=== PATIENT | male | born 1930 | race Caucasian/White ===

== ENCOUNTER 2019-10-17 09:18 | Inpatient (IN) | payer MEDICARE, OTHER ==
[~2019-10-17] VITALS: Ht 162.6 cm; Wt 54.0 kg
[2019-10-17] MEDS ORDERED: OMEP40CA13 PO (09:36)
[2019-10-17] MEDS ORDERED: ATOR40TA PO (09:36)
[2019-10-17] MEDS ORDERED: DOCU-141 PO (09:36)
[2019-10-17] MEDS ORDERED: LATA2.5D7 EACHEYE (09:36)
[2019-10-17] MEDS ORDERED: ASPI-1169 PO (09:36)
[2019-10-17] MEDS ORDERED: MIRT15TA7 PO (09:36)
[2019-10-17] MEDS ORDERED: CALC-7 PO (09:36)
[2019-10-17] MEDS ORDERED: METO25TA3 PO (09:36)
[2019-10-17] MEDS ORDERED: LORA-259 PO (09:36)
[2019-10-17] MEDS ORDERED: FURO-145 PO (09:36)
[2019-10-17] MEDS ORDERED: BUPR-96 PO (09:36)
[2019-10-17 09:50] LABS: BASOPHILS % (AUTO) 0.5 % (0.0-2.0); EOSINOPHILS % (AUTO) 6.3 % (0.0-6.0); HEMATOCRIT 32 % (39-51); HEMOGLOBIN 10.6 g/dL (13.5-17.5); LYMPHOCYTES # (AUTO) 0.7 /CMM (0.8-4.8); LYMPHOCYTES % (AUTO) 11.9 % (20.0-44.0); MEAN CORPUSCULAR HGB CONC 33 g/dl (31.0-36.0); MEAN CORPUSCULAR VOLUME 87 fL (80-96); MONOCYTES # (AUTO) 0.8 /CMM (0.1-1.30); MONOCYTES % (AUTO) 13.9 % (2.0-12.0); NEUTROPHILS % (AUTO) 67.4 % (43.0-81.0); PLATELET COUNT (AUTO) 122 /CMM (150-450); RED BLOOD CELL COUNT(AUTO) 3.72 MIL/uL (4.5-6.0); WHITE BLOOD COUNT (AUTO) 5.9 K/uL (4.3-11.0)
[2019-10-17 09:58] LABS: CALCIUM, SERUM 9.3 mg/dL (8.5-10.1); CARBON DIOXIDE 29 mmol/L (21-32); CHLORIDE 104 mmol/L (98-107); CREATININE 1.8 mg/dL (0.6-1.3); GLUCOSE 98 mg/dL (74-106); POTASSIUM 3.5 mmol/L (3.5-5.1); SODIUM SERUM 141 mmol/L (136-145); UREA NITROGEN, BLOOD 32 mg/dL (7-18)
[2019-10-17 10:14] LABS: B-TYPE NATRIURETIC PEPTIDE 4913 PG/ML (0-125)
[2019-10-17] MEDS ORDERED: CLOPIDOGREL BISULFATE 75 MG TABLET PO ONE (12:30)
[2019-10-17 12:35] VITALS: BP 144/86
[2019-10-17] MEDS: METOPROLOL SUCCINATE 50 MG TAB.SR.24H PO SCH (13:21)
[2019-10-17] MEDS ORDERED: HYDROCODONE/APAP 5/325MG 1 EACH TABLET PO PRN (15:30)
[2019-10-17] MEDS ORDERED: ZOLPIDEM TARTRATE 5 MG TABLET PO PRN (15:30)
[2019-10-17] MEDS ORDERED: ASPIRIN EC 81 MG TABLET.DR PO SCH (15:30)
[2019-10-17] MEDS ORDERED: Z GUARD REMEDY 2 OZ OINT TP PRN (15:30)
[2019-10-17] MEDS ORDERED: ONDANSETRON HCL/PF 4 MG/2 ML VIAL IVP PRN (15:30)
[2019-10-17] MEDS ORDERED: ACETAMINOPHEN 325 MG TABLET PO PRN (15:30)
[2019-10-17] MEDS ORDERED: HEPARIN INFUSION/D5W 500 ML IV PRN (15:30)
[2019-10-17 16:00] VITALS: BP 114/62
[2019-10-17] MEDS: CALCIUM CARB 600MG /VIT D 1 EACH TABLET PO SCH (16:35)
[2019-10-17 17:10] LABS: APPEARANCE,URINE CLEAR (CLEAR); BILIRUBIN,URINE NEGATIVE (NEGATIVE); BLOOD, URINE NEGATIVE Ery/uL (NEGATIVE); COLOR,URINE YELLOW (YELLOW); KETONES,URINE NEGATIVE (NEGATIVE); LEUKOCYTE ESTERASE ,URINE SMALL (NEGATIVE); NITRITE, URINE NEGATIVE (NEGATIVE); PROTEIN,URINE 30 mg/dl (NEGATIVE); UGLUCOSE NEGATIVE (NEGATIVE); UROBILINOGEN,URINE 0.2 EU/dL (0.2)
[2019-10-17 17:17] LABS: BACTERIA,URINE 2+ /HPF (None Seen); RBC,URINE 0-2 /HPF (0-2); SQUAMOUS EPITHELIAL CELL,UR Few /HPF (None Seen); TRIPLE PHOSPHATE CRYSTAL,UR Few /HPF (None Seen); WBC,URINE 21-50 /HPF (0-3)
[2019-10-17 17:29] LABS: CREATININE, URINE 40.4 MG/DL (30.0-125.0); URINE TOTAL PROTEIN 54.6 mg/dL (0-11.9)
[2019-10-17 17:39] LABS: EOSINOPHIL,URINE Rare
[2019-10-17] MEDS ORDERED: LATANOPROST EYE DROP 0.005% 2.5 ML BOTTLE EACHEYE SCH (18:00)
[2019-10-17] MEDS ORDERED: MIRTAZAPINE 15 MG TABLET PO SCH (18:00)
[2019-10-17 20:00] VITALS: BP 110/65
[2019-10-17] MEDS ORDERED: HEPARIN SODIUM, PORCINE 5000 UNITS/1 ML VIAL IV ONE ×2 (21:00)
[2019-10-17] MEDS ORDERED: ATORVASTATIN 40 MG TABLET PO SCH (22:00)
[2019-10-18] VITALS: BP 131/95
[2019-10-18 03:42] LABS: BASOPHILS % (AUTO) 0.5 % (0.0-2.0); EOSINOPHILS % (AUTO) 8.3 % (0.0-6.0); HEMATOCRIT 32 % (39-51); HEMOGLOBIN 10.6 g/dL (13.5-17.5); LYMPHOCYTES % (AUTO) 15.9 % (20.0-44.0); MEAN CORPUSCULAR HGB CONC 33 g/dl (31.0-36.0); MEAN CORPUSCULAR VOLUME 86 fL (80-96); MONOCYTES # (AUTO) 0.7 /CMM (0.1-1.30); MONOCYTES % (AUTO) 10.8 % (2.0-12.0); NEUTROPHILS # (AUTO) 4.3 /CMM (1.8-8.9); NEUTROPHILS % (AUTO) 64.5 % (43.0-81.0); PLATELET COUNT (AUTO) 126 /CMM (150-450); RED BLOOD CELL COUNT(AUTO) 3.77 MIL/uL (4.5-6.0); WHITE BLOOD COUNT (AUTO) 6.6 K/uL (4.3-11.0)
[2019-10-18 03:56] LABS: ALANINE AMINOTRANSFERASE 26 U/L (12-78); ALBUMIN 3.1 g/dL (3.4-5.0); ALKALINE PHOSPHATASE 125 U/L (46-116); ASPARTATE AMINOTRANSFERASE 27 U/L (15-37); BILIRUBIN,TOTAL 0.9 mg/dL (0.2-1.0); CALCIUM, SERUM 8.8 mg/dL (8.5-10.1); CARBON DIOXIDE 27 mmol/L (21-32); CHLORIDE 103 mmol/L (98-107); CREATININE 1.8 mg/dL (0.6-1.3); GLUCOSE 102 mg/dL (74-106); MAGNESIUM 1.9 mg/dL (1.8-2.4); POTASSIUM 3.3 mmol/L (3.5-5.1); SODIUM SERUM 140 mmol/L (136-145); TOTAL PROTEIN, SERUM 6.8 g/dL (6.4-8.2); UREA NITROGEN, BLOOD 36 mg/dL (7-18)
[2019-10-18 03:57] LABS: CHOLESTEROL 124 mg/dL (<200); CREATINE KINASE, TOTAL 207 U/L (39-308); HDL CHOLESTEROL 58 mg/dL (40-60); LDL 62 mg/dL (0-99); TRIGLYCERIDES 72 mg/dL (30-150)
[2019-10-18 04:00] VITALS: BP 94/60
[2019-10-18 04:40] VITALS: BP 94/60
[2019-10-18] MEDS ORDERED: HEPARIN SODIUM, PORCINE 5000 UNITS/1 ML VIAL IV ONE (05:30)
[2019-10-18] MEDS ORDERED: PANTOPRAZOLE 40 MG TABLET.DR PO SCH (07:30)
[2019-10-18 08:00] VITALS: BP 108/57
[2019-10-18] MEDS: CALCIUM CARB 600MG /VIT D 1 EACH TABLET PO SCH (08:11)
[2019-10-18] MEDS ORDERED: BUPROPION XL 150 MG TAB.ER.24 PO SCH (09:00)
[2019-10-18] MEDS ORDERED: LORAZEPAM 1 MG TABLET PO SCH (09:00)
[2019-10-18] MEDS ORDERED: CLOPIDOGREL BISULFATE 75 MG TABLET PO SCH (09:00)
[2019-10-18] MEDS ORDERED: DOCUSATE SODIUM 100 MG CAPSULE PO SCH (09:00)
[2019-10-18] MEDS ORDERED: ASPIRIN 81 MG TAB.CHEW PO SCH (09:00)
[2019-10-18] MEDS ORDERED: CLOP75TA15 PO (09:33)
[2019-10-18] MEDS ORDERED: POTASSIUM CHLORIDE 20 MEQ TAB.PRT.SR PO SCH (11:00)
[2019-10-18 12:54] VITALS: BP 113/61
[2019-10-18] MEDS: METOPROLOL SUCCINATE 50 MG TAB.SR.24H PO SCH (12:54)
[2019-10-21 07:59] LABS: *SPE ALBUMIN 3.1 g/dL (2.9-4.4); *SPE ALPHA-1-GLOBULIN 0.3 g/dL (0.0-0.4); *SPE ALPHA-2-GLOBULIN 0.8 g/dL (0.4-1.0); *SPE GLOBULIN, TOTAL 3.1 g/dL (2.2-3.9); *SPE M-SPIKE Not Observed g/dL (Not Observed)
[2019-10-21 14:06] LABS: PTH, INTACT 38 pg/mL (15-65)
== END 2019-10-18 13:45 | disposition home or self-care (01) | DRG 280 ==
LOC: ER 09:27 → TELE 11:12 → MED 10-18 10:25
PROVIDERS: ADMIT Internal Medicine; ATTEND Internal Medicine
DX: I21.4 Non-ST elevation (NSTEMI) myocardial infarction (principal); N17.0 Acute kidney failure with tubular necrosis; I48.20 Chronic atrial fibrillation, unspecified; D63.1 Anemia in chronic kidney disease; I12.9 Hypertensive chronic kidney disease with stage 1 through stage 4 chronic kidney disease, or unspecified chronic kidney disease; N18.9 Chronic kidney disease, unspecified; K21.9 Gastro-esophageal reflux disease without esophagitis; F32.9 Major depressive disorder, single episode, unspecified; E78.5 Hyperlipidemia, unspecified; D69.6 Thrombocytopenia, unspecified; Z79.02 Long term (current) use of antithrombotics/antiplatelets; Z79.82 Long term (current) use of aspirin; Z79.899 Other long term (current) drug therapy; Z95.1 Presence of aortocoronary bypass graft; Z95.2 Presence of prosthetic heart valve; Z95.5 Presence of coronary angioplasty implant and graft; I73.9 Peripheral vascular disease, unspecified; Z93.6 Other artificial openings of urinary tract status; Z98.62 Peripheral vascular angioplasty status; I25.10 Atherosclerotic heart disease of native coronary artery without angina pectoris; R33.9 Retention of urine, unspecified
CPT/HCPCS: 36415; 71045-TC; 80048-TC; 80053-TC; 80061-TC; 81000-TC; 82550-TC; 82570-TC; 83735-TC; 83880; 83970; 84100-TC; 84155; 84155-TC; 84165; 84300-TC; 84484-TC; 85025-TC; 85610-TC; 85730-TC; 87081-TC; 87086-TC; 93307-TC; G0378; J1644